=== PATIENT | male | born 1945 | race African-American/Black ===

== ENCOUNTER 2021-06-26 17:09 | Emergency (ER) | payer MEDICARE, BC ==
[~2021-06-26] VITALS: Ht 177.8 cm; Wt 84.0 kg
[2021-06-26 20:07] VITALS: BP 103/64
[2021-06-26 21:40] LABS: CLARITY URINE CLEAR (CLEAR); COLOR URINE YELLOW (YELLOW); KETONES URINE NEGATIVE (NEGATIVE); LEUKOCYTE ESTERASE URINE 1+ (NEGATIVE); NITRITE URINE NEGATIVE (NEGATIVE); OCCULT BLOOD URINE NEGATIVE (NEGATIVE); PH URINE 5.5 (4.5-8.0); PROTEIN URINE NEGATIVE (NEGATIVE); SPECIFIC GRAVITY URINE 1.022 (1.005-1.030); UROBILINOGEN URINE 0.2 E.U./dL (0.2-1.0)
[2021-06-26 21:55] LABS: *AMPHETAMINES SCREEN URINE NEGATIVE (NEGATIVE)
[2021-06-26 21:56] LABS: CHLORIDE 105 mEq/L (98-107)
[2021-06-26 21:56] LABS: *BARBITURATES SCREEN URINE NEGATIVE (NEGATIVE); *BENZODIAZEPINES SCREEN URINE NEGATIVE (NEGATIVE); *COCAINE SCREEN URINE NEGATIVE (NEGATIVE); METHADONE URINE SCREEN NEGATIVE (NEGATIVE); OPIATES URINE SCREEN NEGATIVE (NEGATIVE)
[2021-06-26 21:57] LABS: CANNABINOID URINE SCREEN PRESUMTIVE POSITIVE (NEGATIVE); PHENCYCLIDINE URINE SCREEN NEGATIVE (NEGATIVE)
[2021-06-26 22:01] LABS: BASOPHILS % 0.1 % (0.0-2.0); EOSINOPHILS % 0.6 % (0.0-5.0); ETHANOL BLOOD < 10 mg/dL; HEMATOCRIT. 37.9 % (42.0-52.0); HEMOGLOBIN. 12.7 g/dL (14.0-18.0); LYMPHOCYTES % 20.5 % (20.0-50.0); MEAN CORPUSCULAR HEMOGLOBIN 27.9 pg (28.0-32.0); MEAN CORPUSCULAR VOLUME 83.6 fL (80.0-94.0); MEAN PLATELET VOLUME 8.1 fl (7.4-10.4); MONOCYTES % 6.9 % (2.0-8.0); NEUTROPHILS % 71.9 % (40.0-76.0); PLATELET 214 x1000/uL (130-400); RED BLOOD CELL COUNT 4.54 mill/uL (4.7-6.1); RED CELL DISTRIBUTION WIDTH 13.8 % (11.6-14.6)
[2021-06-26 22:16] LABS: C REACTIVE PROTEIN QUANT 3.6 mg/L (0.0-3.0)
[2021-06-27] MEDS ORDERED: CEPH500C2 MT (00:11)
[2021-06-27] MEDS ORDERED: CEPHALEXIN 250MG CAPSULE PO NR (00:15)
== END 2021-06-27 00:38 | disposition home or self-care (01) ==
LOC: ER 17:09 → CANBEDREQ 06-27 10:50
DX: R55 Syncope and collapse (principal); N39.0 Urinary tract infection, site not specified; R94.8 Abnormal results of function studies of other organs and systems; E11.9 Type 2 diabetes mellitus without complications; I10 Essential (primary) hypertension
CPT/HCPCS: 36415; 71045; 80053; 80305; 80320; 81003; 82962; 83605; 83880; 84145; 84484; 85025; 86140; 93005; 99285; G0480